=== PATIENT | female | born 1965 | race Caucasian/White ===

== ENCOUNTER 2019-03-01 05:53 | Inpatient (IN) | payer OTHER ==
[~2019-03-01] VITALS: Ht 157.5 cm; Wt 46.3 kg
[2019-03-01] VITALS (13 sets, daily range): BP systolic 94–136; BP diastolic 52–88; PULSE 66–100; RESP 12–18; Ht 157.5 cm; Wt 46.3 kg
[2019-03-01] MEDS ORDERED: CLINDAMYCIN 900 MG/D5W (PMX) 50 ML IVPB ONE (06:00)
--- NOTE | 2019-03-01 06:46 | PREOPHP ---
DATE OF ADMISSION: 03/01/2019 REASON FOR ADMISSION: The patient is coming on Wednesday, the , for surgery. HISTORY OF PRESENT ILLNESS: This is a 53-year-old female, 1, para 0, 1, this patien t's last menstrual period was 02/2018 and she had a history of menometrorrhagia, abnormal bleeding fo r the longest time. She had been suffering from large fibroids and she has been anemic, and she has been on treatment for anemia several times gone to a real low levels. The patient is also having men opausal symptoms of hot flashes. She had a history of a D and C and a conization of the cervix a kevin g time ago. SHE IS ALLERGIC TO PENICILLIN. She has been on estradiol and Aygestin. She had a famil y history of fibroids. REVIEW OF SYSTEMS: There is no cardiovascular system problems. No lung disease, no GI disease, no e ndocrine disease. ALLERGIES: SHE IS ALLERGIC TO PENICILLIN. SOCIAL HISTORY: She has no history of drugs. She does not drink or smoke. FAMILY HISTORY: Also noncontributory. MEDICATIONS: She is on estrogen hormonal treatment. PHYSICAL EXAMINATION: VITAL SIGNS: Blood pressure is 120/60, pulse is 80, respirations 16. She is 5 feet 3 inches. She w eighs 112. HEAD AND NECK: Normal. BREASTS: Dense nontender, no masses. CHEST: Clear. HEART: Normal sinus rhythm. BACK: Normal. ABDOMEN: With the uterus is about 16 weeks' size. GENITALIA: Normal, otherwise. Externally, the bladder is normal. The uterus is very large and very painful. RECTAL: Negative. EXTREMITIES: Normal. DIAGNOSES: 1. Intractable menometrorrhagia and pelvic pain. 2. Large multiple fibroids. 3. Perimenopausal syndrome. 4. Anemia. 5. Fibrocystic breast disease. PLAN: She is undergoing a total abdominal hysterectomy, bilateral salpingectomy with the possibility of removing ovaries in case if necessary. She has been advised of the possible risks and possible c omplications of the procedure with her alternatives and options. Written information was provided. She had no more questions and agreed to go ahead with the procedure with full understanding and no mo re questions. Dictated By: GINGER RIVERA/BLADE Conf#: [id number] DID#: [id number]
[2019-03-01] MEDS ORDERED: ESTR1TAB23 PO (07:05)
--- NOTE | 2019-03-01 07:26 | PREAC ---
Date/Time of Note Date/Time of Note DATE: 03/01/19 TIME: 07:25 Anesthesia Eval and Record Evaluation Time Pre-Procedure Interview DATE: 03/01/19 TIME: 07:25 Age 53 Sex female NPO: 8 hrs Preoperative diagnosis uterine fibroid Planned procedure hysterectomy, poss BSO Past Medical History Past Medical History: None Surgery & Anesthesia Issues No known issue Meds Anticoagulation: No Beta Hubert within 24 hr: No Reason Beta Hubert not given: Pt. not on B-Hubert Reported Medications Estradiol* (Estrace*) 1 Mg Tablet, 1 MG PO DAILY, TAB 03/01/19 Meds reviewed: Yes Allergies Coded Allergies: Penicillins (Verified Allergy, Unknown, 03/01/19) amoxicillin (Verified Allergy, Unknown, 03/01/19) niacin (Verified Allergy, Unknown, 03/01/19) PT STATES IT MAKES HER LETHARGIC Allergies Reviewed: Yes Labs/Studies Labs Reviewed: Reviewed by anesthesiologist test: N/A Studies: ECG (sr), CXR (nl) Pre-procedure Exam Airway: Adequate mouth opening Mallampati: Mallampati I Teeth: Normal Lung: Normal Heart: Normal ASA Physical Status ASA physical status: 1 Emergency: None Planned Anesthetic General/MAC: LMA Neuraxial: Spinal Planned Pain Management Sub-arachniod narcotics Pre-operative Attestations Prior to commencing anesthesia and surgery, the patient was re-evaluated, there was verification of: *The patient's identity *The results of appropriate recent lab work and preoperative vital signs *The above evaluation not changing prior to induction *Anesthetic plan, risk benefits, alternative and complications discussed with patient/family; questions answered; patient/family understands, accepts and wishes to proceed. ARNIE OLIVARES MD Mar 01, 2019 07:26
[2019-03-01] MEDS ORDERED: PROPOFOL 20 ML ONE (07:36)
[2019-03-01] MEDS ORDERED: METOCLOPRAMIDE 10 MG INJ ONE (07:36)
[2019-03-01] MEDS ORDERED: morphine SULFATE/PF (10 MG/10 ML) INJ ONE (07:36)
[2019-03-01] MEDS ORDERED: KETOROLAC 30 MG INJ ONE (07:36)
[2019-03-01] MEDS ORDERED: CEFAZOLIN 1 GM INJ ONE (07:36)
[2019-03-01] MEDS ORDERED: ONDANSETRON 4 MG INJ ONE (07:36)
[2019-03-01] MEDS ORDERED: MIDAZOLAM 1 MG/ML 2 ML INJ ONE (07:36)
--- NOTE | 2019-03-01 07:40 | HPN ---
Date/Time of Note Date/Time of Note DATE: 03/01/19 TIME: 07:40 Interval H&P Admission Note Pt. seen H&P reviewed: No system changes GINGER STEWART MD Mar 01, 2019 07:40
[2019-03-01] MEDS ORDERED: FENTAnyl 50 MCG/ML VIAL ONE (07:52)
[2019-03-01] MEDS ORDERED: HYDROmorphONE 1 MG/5 ML IV SYRINGE IV PRN ×3 (09:00)
[2019-03-01] MEDS ORDERED: DIPHENHYDRAMINE 50 MG INJ IV PRN (09:00)
[2019-03-01] MEDS ORDERED: MEPERIDINE 25 MG INJ IV PRN (09:00)
[2019-03-01] MEDS ORDERED: KETOROLAC 30 MG INJ IV PRN (09:00)
[2019-03-01] MEDS ORDERED: SUCCINYLCHOLINE CHLORIDE 100 MG/5 ML SYG IV ONE (09:34)
[2019-03-01] MEDS ORDERED: ZOLPIDEM 5 MG TAB PO PRN (10:30)
[2019-03-01] MEDS ORDERED: DIPHENHYDRAMINE 50 MG CAP PO PRN (10:30)
[2019-03-01] MEDS ORDERED: HYDROCODONE/APAP (5/325) TAB PO PRN ×2 (10:30)
--- NOTE | 2019-03-01 10:40 | SIPON ---
Date/Time of Note Date/Time of Note DATE: 03/01/19 TIME: 10:37 Operative Report Preoperative Diagnosis Intractable menometrorrhagia and pelvic pain Large multiple fibroids uterus Anemia Perimenopausal syndrome Postoperative Diagnosis The same plus left retroperitoneal tumor Operation/Procedure Performed Total abdominal hysterectomy bilateral salpingectomy Consultation with general surgery for left retroperitoneal tumor resection Surgeon see signature line library serials assistant truck technician for removal of the left retroperitoneal tumor Anesthesia: general Estimated blood loss: 50 - 100 ml's Transfusion Required none Specimen Uterus tubes and left retroperitoneal mass Grafts/Implants none Complications none GINGER STEWART MD Mar 01, 2019 10:40
[2019-03-01] MEDS ORDERED: ONDANSETRON INJ 6 MG in DEXTROSE 5% 50 ML IVPB PRN (11:00)
[2019-03-01] MEDS: ONDANSETRON 4 MG INJ IV PRN ×2 (11:11→13:05)
--- NOTE | 2019-03-01 12:13 | OPR ---
Date/Time of Note Date/Time of Note DATE: 03/01/19 TIME: 12:09 Operative Report Procedure Date: Mar 01, 2019 Preoperative Diagnosis Retroperitoneal tumor 7 cm Postoperative Diagnosis same Operation/Procedure Performed Excision of 7 cm retroperitoneal tumor Surgeon see signature line Stock Broker Supervisor Dr Dorado Anesthesia Type: general Estimated Blood Loss: minimal Transfusion none Specimen retroperitoneal tumor 7 cm Grafts/Implants none Complications none Pt Condition Post Procedure: stable Disposition: PACU Indications This patient was undergoing excision of a pelvic tumor by the investigation lieutenant. During the surgery it was noted that the tumor was extending retroperitoneally and I was intraoperatively consulted to excise it as the investigation lieutenant did not feel comfortable dissecting the retroperitoneum where the iliac vessels and the ureter adjacent to the tumor were located. Procedure Description The patient's abdomen had already been opened. She had already had one large tumor excised. The tumor had a second lobe that was extending into the retroperitoneum. Where the retroperitoneum had already been incised I placed 2 Allis clamps and opened it up. The left iliac artery and vein were identified as was the ureter which was right above it. I confirmed that the ureter was out of harm's way away from the tumor site. The tumor capsule was slowly excised from the retroperitoneum layer by layer until it was circumferentially dissected off the retroperitoneum. The tumor was noted to be then connected toward the adnexal structures and thereafter the LigaSure device was placed beneath the tumor and used to excise the tumor from the patient's round ligament. The tumor was about 7 cm in diameter. It was passed off the field. I then left and Dr. Dorado closed the abdomen. CADY ROMERO Mar 01, 2019 12:13
[2019-03-01] MEDS: METOCLOPRAMIDE 10 MG TAB PO SCH ×2 (12:21→17:46)
[2019-03-01] MEDS: KETOROLAC 30 MG INJ IV SCH ×2 (12:21→17:46)
--- NOTE | 2019-03-01 12:45 | PAC ---
Date/Time of Note Date/Time of Note DATE: 03/01/19 TIME: 12:45 Post-Anesthesia Notes Post-Anesthesia Note Last documented vital signs Vital Signs Date Temp Pulse Resp B/P (MAP) Pulse Ox O2 O2 Flow FiO2 Time Delivery Rate 03/01/19 98.6 66 18 136/88 96 Room Air 11:52 (104) Activity: WNL Respiratory function: WNL Cardiovascular function: WNL Mental status: Baseline Pain reasonably controlled: Yes Hydration appropriate: Yes Nausea/Vomiting absent: No ARNIE OLIVARES MD Mar 01, 2019 12:45
[2019-03-01] MEDS: CEFAZOLIN 1 GM/50 ML (PMX) 50 ML IVPB SCH ×2 (13:07→21:42)
[2019-03-01] MEDS ORDERED: EPHEDrine 25 MG/5 ML SYG IV ONE (14:21)
--- NOTE | 2019-03-01 14:51 | OPR ---
DATE OF OPERATION: 03/01/2019 PROCEDURE: Total abdominal hysterectomy, bilateral salpingectomy and consultation with general surge ry for left retroperitoneal tumor resection. SURGEONS: Ginger Dorado MD and Stoney Stein MD ANESTHESIOLOGIST: Karina Cardona MD COMPLICATIONS: None. PROCEDURE IN DETAILS: The patient was given general anesthesia, placed in the lithotomy position and supine position. The Dunn catheter was placed in the bladder. The abdomen was prepped and draped and a small incision over the suprapubic area transversely of about 15 cm in diameter was made. The abdominal cavity was reached and the finding in the abdomen was of large multiple fibroid uterus and a left retroperitoneal mass. Both ovaries were atrophic. Both tubes were normal. The uterus was br ought out of the incision before the instrumentation was done. The round ligaments, ovarian ligament and tube were held with the bipolar instrument and were used in both sides. Bladder flap was made. The bladder was pushed down. The uterine vessels were clamped, burned and cut with ____ bipolar ins trument. The cardinal ligament and uterosacral ligaments were clamped, cut and tied with #1 Vicryl. At this time, the uterus was excised from the cervix to be able to place a retractor. Self-retainin g retractor was placed in and the cervix was grabbed. The cervix was removed by incising the vaginal wall posteriorly and the cervix was removed in its entire length. The corners of the vagina were he ld and [id number] sutures were done with #1 Vicryl. This was done in both sides. The rest of t he vagina was closed completely with interrupted sutures with #1 Vicryl. Hemostasis was good. There was small bleeding behind the bladder for which an MH 0 Vicryl were placed and the bleeding stopped. The cavity was cleaned out under water and there was no active bleeding. At this time, we called g eneral surgery for consultation on the left retroperitoneal mass that was present of about 10 cm in d iameter. The visualization at this time was of the ureter being underneath this mass. Dr. Emil zamora ame in consultation and he removed this mass with ____ dissection. The bleeding of the area was chec ked and the water was placed and there was no active bleeding. We put Interceed in both ovaries and Surgicel underneath the bladder area after confirming that there was no active bleeding and that both ureters were with good peristalsis. There was no active bleeding. The procedure was finished by re moving all the instruments and laps. The peritoneum was closed with a 2-0 Vicryl. The fascia was cl osed with PDS looped suture, 2-0 Vicryl for the subcutaneous tissue, 3-0 Monocryl subcuticular to the skin, Steri-Strips and Dermabond. The patient left the OR awake and stable. Sponge counts and inst rument counts were correct. Intravenous antibiotics were given for prophylaxis. Blood loss was less than 100 mL. Dictated By: GINGER RIVERA/BLADE Conf#: [id number] DID#: [id number]
[2019-03-01] MEDS: LACTATED RINGER'S 1,000 ML IV SCH ×2 (15:45→18:01)
[2019-03-02] MEDS: METOCLOPRAMIDE 10 MG TAB PO SCH ×4 (00:44→17:44)
[2019-03-02] MEDS: KETOROLAC 30 MG INJ IV SCH ×4 (00:45→17:42)
[2019-03-02] MEDS: LACTATED RINGER'S 1,000 ML IV SCH ×2 (01:52→10:22)
[2019-03-02 02:00] VITALS: BP 105/58; PULSE 70; RESP 18
[2019-03-02] MEDS: CEFAZOLIN 1 GM/50 ML (PMX) 50 ML IVPB SCH (05:41)
[2019-03-02 08:00] VITALS: BP_SYST 105; BP_SYST 127; BP_DIAS 63; BP_DIAS 64; PULSE 100; PULSE 86; RESP 18; RESP 20
--- NOTE | 2019-03-02 08:07 | OPPN ---
Date/Time of Note Date/Time of Note DATE: 03/02/19 TIME: 08:06 Anesthesia Follow up Anesthesia Follow up Last documented vital signs Vital Signs Date Temp Pulse Resp B/P (MAP) Pulse Ox O2 O2 Flow FiO2 Time Delivery Rate 03/02/19 98.1 70 18 105/58 99 02:00 (74) 03/01/19 Room Air 11:52 Respiratory function: WNL Cardiovascular function: WNL Comments A 53 year old female s/p GA, spinal with duramorpg for post op pain per surgeon POD#! is doing fine. pain and N/V are controlled. No itching , headache, neural deficit. care per surgery ARNIE OLIVARES MD Mar 02, 2019 08:07
[2019-03-02] MEDS ORDERED: ESTRADIOL 1 MG TAB PO SCH (09:00)
[2019-03-02] MEDS: ESTRADIOL 1 MG TAB PO SCH (09:06)
--- NOTE | 2019-03-02 12:03 | PN ---
Date/Time of Note Date/Time of Note DATE: 03/02/19 TIME: 12:01 Assessment/Plan Lines/Catheters IV Catheter Type (from Nrsg): Peripheral IV Subjective 24 Hr Interval Summary day 1 : EMILY BS EXCISION OF RETROPERITONEAL MASS Afebrile, stable. pt explained about surgical findings and procedure Constitutional: no complaints Feeding: advancing diet Pain Control: mild Detailed Summary Eyes: no complaints ENT: no complaints Respiratory: no complaints Cardiovascular: no complaints Gastrointestinal: no complaints Genitourinary: no complaints Musculoskeletal: no complaints Skin: no complaints Neurologic: no complaints Endocrine: no complaints Lymphatic: no complaints Psychological: no complaints, nl mood/affect Immunologic: no complaints Exam/Review of Systems Vital Signs Vitals Vital Signs Date Temp Pulse Resp B/P (MAP) Pulse Ox O2 O2 Flow FiO2 Time Delivery Rate 03/02/19 98.6 100 20 105/64 98 08:00 (78) 03/01/19 Room Air 11:52 Intake and Output 03/01/19 03/01/19 03/02/19 1515:00 23:00 07:00 IntakeIntake Total 2400 ml 575 ml 290 ml OutputOutput Total 175 ml 350 ml 400 ml BalanceBalance 2225 ml 225 ml -110 ml Exam Constitutional: alert, oriented, well developed Psych: no complaints, nl mood/affect Head: normocephalic, atraumatic Eyes: nl conjunctiva, EOMI, nl lids, nl sclera ENMT: nl external ears & nose, nl lips & teeth, nl nasal mucosa & septum, mucosa pink and moist Neck: supple, non-tender Respiratory: clear to auscultation, normal air movement Cardiovascular: regular rate and rhythm, nl pulses Gastrointestinal: soft, nl liver, spleen, non-tender Musculoskeletal: nl extremities to inspection, nl gait and stance Extremities: normal pulses Neurological: DEPUTY ADMINISTRATOR II-XII intact, nl mental status, nl speech, nl strength Skin: nl turgor, rash or lesions Lymph: nl lymph nodes Results Result Diagram: 03/02/19 0608 03/02/19 0607 GINGER STEWART MD Mar 02, 2019 12:03
[2019-03-02 14:00] VITALS: BP 110/62; PULSE 76; RESP 18
[2019-03-02 20:00] VITALS: BP 126/71; PULSE 102; RESP 18
[2019-03-02] MEDS ORDERED: BISACODYL (EC) 5 MG TAB PO ONE (20:30)
[2019-03-03] MEDS: KETOROLAC 30 MG INJ IV SCH ×3 (00:15→12:00)
[2019-03-03] MEDS: METOCLOPRAMIDE 10 MG TAB PO SCH ×3 (00:15→12:47)
[2019-03-03 02:00] VITALS: BP 114/68; PULSE 105; RESP 18
[2019-03-03 08:00] VITALS: BP 136/78; PULSE 100; RESP 18
[2019-03-03] MEDS: ESTRADIOL 1 MG TAB PO SCH (09:10)
[2019-03-03 14:00] VITALS: BP 114/68; PULSE 94; RESP 18
--- NOTE | 2019-03-03 15:36 | PD.PPDC ---
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 Condition [id number] Patient Condition: [id number] Good Diet [id number] Diet: Goagv9z Resume Regular Diet Wound/Drain Care Instructions [id number] Wound/Drain Care Instructions: [id number] Wash with soap and water Keep clean and dry Follow-up Follow-up with Physician: 1, Week/Weeks Return to clinic for [id number] APPRENTICE Instructions: [id number] Fever greater than 101 Chills Worsening abdominal pain Excessive Vaginal Bleeding More than 2 pads per hour Unable to tolerate diet [id number] OB Instructions: [id number] Breast Tenderness Depression Blurried Vision Headache [id number] Surgical Instructions: [id number] Incisional Drainage Incisional Redness GINGER STEWART MD Mar 03, 2019 15:36
--- NOTE | 2019-03-03 15:40 | DS ---
Date/Time of Note Date/Time of Note DATE: 03/03/19 TIME: 15:37 Discharge Summary Admission/Discharge Info Admit Date/Time Mar 01, 2019 at 05:53 Discharge Date/Time March 03, 2019 Discharge Diagnosis Large multiple fibroid uterus. left retroperitoneal mass. Chronic intractable pelvic pain Patient Condition: Good Consults Surgical consultation for excision of left retroperitoneal mass Procedures Total abdominal hysterectomy bilateral salpingectomy Resection of left retroperitoneal mass Hx of Present Illness 53 years old female 1 para 0 with a history of intractable pelvic pain and bleeding and anemia. This patient was diagnosed with a large giant fibroid multiple fibroids, she was in perimenopause bleeding heavily. She had a total abdominal hysterectomy bilateral salpingectomy She was also diagnosed at the time of surgery with left retroperitoneal mass for which from surgery was consulted and he removed it. She did very well post surgery She was ambulatory, afebrile, stable and with pain controlled for which she was given permission to go home on the second postoperative day when she is already tolerating diet, incision is healing good. she had small bowel movement and she has been passing gases and voiding well. She was explained about what to consider an emergency at home and given the in formation how to reach me. She was given instructions to see me in a week in the office. She was given omeprazole to prevent gastritis from the pain medications, she was also given [place] and ibuprofen and she was instructed of what to do and not to do at home. Hospital Course As above she did extremely well after surgery with a healing incision afebrile vital signs stable ambulatory voiding well tolerating diet and passing gases with a small bowel movement. Laboratory testing were with anemia but she is used to anemia and she feels no symptoms about it she is to start her vitamins after pain medication and.. Increase her protein intake to get better from her anemia status Home Meds Reported Medications Estradiol* (Estrace*) 1 Mg Tablet, 1 MG PO DAILY, TAB 03/01/19 Follow-up Plan 1 week Primary Care Provider Not On Staff Doctor Time spent on discharge: < 30 minutes Pending Labs Laboratory Tests Test 03/03/19 05:17 White Blood Count 6.2 10^3/ul (4.8-10.8) Red Blood Count 4.18 10^6/ul (4.20-5.40) Hemoglobin 11.8 g/dl (12.0-16.0) Hematocrit 37.1 % (37.0-47.0) Mean Corpuscular Volume 88.8 fl (82.0-101.0) Mean Corpuscular Hemoglobin 28.2 pg (29.0-33.0) Mean Corpuscular Hemoglobin Concent 31.8 g/dl (32.0-37.0) Red Cell Distribution Width 13.7 % (11.5-14.5) Platelet Count 165 10^3/UL (140-415) Mean Platelet Volume 9.9 fl (7.4-10.4) Immature Granulocytes % 0.300 % (0.001-0.429) Neutrophils % 80.4 % (39.0-77.0) Lymphocytes % 13.3 % (15.0-51.0) Monocytes % 5.3 % (0.0-11.0) Eosinophils % 0.5 % (0.0-7.0) Basophils % 0.2 % (0.0-2.0) Nucleated Red Blood Cells % 0.0 /100WBC (0.0-0.0) Immature Granulocytes # 0.020 10^3/ul (0.0-0.031) Neutrophils # 5.0 10^3/ul (1.6-7.5) Lymphocytes # 0.8 10^3/ul (0.8-2.9) Monocytes # 0.3 10^3/ul (0.3-0.9) Eosinophils # 0.0 10^3/ul (0.0-0.5) Basophils # 0.0 10^3/ul (0.0-0.1) Nucleated Red Blood Cells # 0.0 10^3/ul (0.0-0.0) GINGER STEWART MD Mar 03, 2019 15:40
== END 2019-03-03 17:45 | disposition home or self-care (01) | DRG 743 ==
LOC: REC 05:53 → EDSTATUS 07:30 → PP2 11:44 → UNDODISIN 03-03 17:45
PROVIDERS: ADMIT Obstetrics & Gynecology; ATTEND Obstetrics & Gynecology
PROC: 0UT90ZZ Resection of Uterus, Open Approach (ICD-10-PCS; 2019-03-01)
PROC: 0UT70ZZ Resection of Bilateral Fallopian Tubes, Open Approach (ICD-10-PCS; 2019-03-01)
PROC: 0WBH0ZZ Excision of Retroperitoneum, Open Approach (ICD-10-PCS; principal; 2019-03-01 07:30)
DX: D25.9 Leiomyoma of uterus, unspecified (principal); N92.1 Excessive and frequent menstruation with irregular cycle; Z78.0 Asymptomatic menopausal state; D64.9 Anemia, unspecified; N60.19 Diffuse cystic mastopathy of unspecified breast; D49.0 Neoplasm of unspecified behavior of digestive system
CPT/HCPCS: 80051; 82565; 84520; 85025; 86850; 86900; 86901; 87086; 88305; J0690; J1170; J1885; J2250; J2274; J2405; J2765; J3010; J7120